=== PATIENT | female | born 1950 | race Caucasian/White ===

== ENCOUNTER 2020-08-26 13:58 | Outpatient (CLI) | payer OTHER | END 2020-08-26 14:14 | disposition home or self-care (01) | LOC: SONOGRAMA 13:58 | PROVIDERS: ATTEND Internal Medicine Cardiovascular Disease | DX: M05.59 Rheumatoid polyneuropathy with rheumatoid arthritis of multiple sites (principal); E04.8 Other specified nontoxic goiter ==